=== PATIENT | female | born 1955 | race Caucasian/White ===

== ENCOUNTER → 2016-03-30 | Outpatient (REF) | payer OTHER ==
[~2016-03-30] MED LIST: ALLE180T33 PO; D32000TA PO; FLON1SPR; PANT40TA2 PO; VAGI10TA TOP
[2016-03-30 19:56] LABS: FREE T4 1.21 NG/DL (0.76-1.46)
== END ==
LOC: M LABDRAW1 17:33
PROVIDERS: ATTEND Internal Medicine Endocrinology, Diabetes & Metabolism
DX: E04.2 Nontoxic multinodular goiter (principal)